=== PATIENT | male | born 1985 | race Caucasian/White ===

== ENCOUNTER 2021-05-15 11:24 | Emergency (ER) | payer OTHER ==
[2021-05-15] MEDS ORDERED: Sodium Chloride 0.9% 10 ML Syringe FLUSH PRN (12:46)
[2021-05-15] MEDS ORDERED: Famotidine 20 MG/2 ML SDV IVPUSH PRN (12:47)
[2021-05-15] MEDS ORDERED: methylPREDNISolone Sodium Succinate 125 MG/2 ML SDV IVPUSH PRN (12:47)
[2021-05-15] MEDS ORDERED: Codeine/Promethazine 10-6.25 MG/5 ML Syrup 5 ML UD Cup PO ONE (12:47)
[2021-05-15] MEDS ORDERED: EPINEPHrine 1 MG/ML SDV IM PRN (12:47)
[2021-05-15] MEDS ORDERED: diphenhydrAMINE 50 MG/ML SDV IVPUSH PRN (12:47)
[2021-05-15] MEDS ORDERED: Dexamethasone 10 MG/ML SDV IVPUSH ONE (12:48)
[2021-05-15] MEDS ORDERED: Sodium Chloride 0.9% 10 ML Syringe FLUSH SCH (13:00)
--- NOTE | 2021-05-15 13:01 | EDM.PDOC ---
ED HPI GENERAL MEDICAL PROBLEM - General Chief Complaint: Respiratory Problem Stated Complaint: COVID + Time Seen by Provider: 05/15/21 12:22 Source of Information: Reports: Patient, RN Notes Reviewed History Limitations: Reports: No Limitations - History of Present Illness INITIAL COMMENTS - FREE TEXT/NARRATIVE: Patient is a 35-year-old male who presents to the ER for evaluation of his COVID-19 symptoms. Patient notes he has been sick about a week now. He has had on and off chills and elevated temperatures. States he has no appetite, but has been trying to increase his oral fluid intake to include Gatorade and Powerade, states he had a couple chicken nuggets prior to coming to the ER, these have stayed down. He does note that his stomach has been generally upset, he does not feel like it is nausea, but he has had some episodes of looser stools or diarrhea as well. has been giving him Pepto-Bismol for this and he notes that his stool has turned black. He has been using Coricidin HBP medications, for ongoing symptoms. Along with cough medications [id number] to see if they can help the cough. His main concern is the dry intermittent cough, he has not been able to get much sleep due to the coughing. States his upper abdomen is somewhat tender or sore, due to all of the coughing. He is not having any active chest pain. Generalized Pain Score (Numeric/FACES): 5 - Related Data Allergies Allergy/AdvReac Type Severity Reaction Status Date / Time No Known Allergies Allergy Verified 05/15/21 12:49 Home Meds: Home Meds Promethazine HCl/Codeine [Prometh-Codein 6.25-10 mg/5 ml] 10 ml PO Q4H PRN #120 ml 05/15/21 [Rx] dexAMETHasone [Decadron] 6 mg PO DAILY 5 Days #5 tablet 05/15/21 [Rx] Past Medical History Cardiovascular History: Reports: High Cholesterol, Hypertension Psychiatric History: Reports: PTSD - Infectious Disease History Infectious Disease History: Reports: Novel Coronavirus Social & Family History - Caffeine Use Caffeine Use: Reports: Soda - Recreational Drug Use Recreational Drug Use: Yes Recreational Drug Type: Reports: Marijuana/Hashish Recreational Drug Use Frequency: Daily ED ROS GENERAL - Review of Systems Review Of Systems: Comprehensive ROS is negative, except as noted in HPI. ED EXAM, GENERAL - Physical Exam Exam: See Below Exam Limited By: No Limitations General Appearance: Alert, WD/WN, No Apparent Distress Respiratory/Chest: No Respiratory Distress, Lungs Clear, No Accessory Muscle Use, Chest Non-Tender, Decreased Breath Sounds (diminished bilaterally), Other (pt has dry intermittent cough) Cardiovascular: Normal Peripheral Pulses, Regular Rate, Rhythm, No Edema Peripheral Pulses: 2+: Radial (L), Radial (R) GI/Abdominal: Normal Bowel Sounds, Soft, No Distention, No Mass, Tender (slight tenderness to the upper abdomen/lower chest) Extremities: Normal Inspection, Normal Capillary Refill Neurological: Alert, Oriented, Normal Cognition, No Motor/Sensory Deficits Psychiatric: Normal Affect, Normal Mood Skin Exam: Warm, Dry, Intact, Normal Color, No Rash Course - Vital Signs Last Recorded V/S: Last Vital Signs Temp 98.1 F 05/15/21 12:45 Pulse 102 H 05/15/21 12:45 Resp 20 05/15/21 12:45 BP 160/99 H 05/15/21 12:45 Pulse Ox 92 L 05/15/21 12:45 - Orders/Labs/Meds Orders: Active Orders 24 hr Category Date Time Status Peripheral IV Care [RC] . DIRECTED Care 05/15/21 12:47 Active Vital Signs [RC] Q15M Care 05/15/21 12:47 Active Chest 1V Frontal [CR] Stat Exams 05/15/21 12:46 Taken EPINEPHrine [Adrenalin] Med 05/15/21 12:47 Active 0.3 mg IM ONETIME PRN Famotidine [Pepcid] Med 05/15/21 12:47 Active 20 mg IVPUSH ONETIME PRN Sodium Chloride 0.9% [Saline Flush] Med 05/15/21 12:46 Active 10 ml FLUSH ASDIRECTED PRN Sodium Chloride 0.9% [Saline Flush] Med 05/15/21 13:00 Active 30 ml FLUSH ASDIRECTED diphenhydrAMINE [Benadryl] Med 05/15/21 12:47 Active 50 mg IVPUSH ONETIME PRN methylPREDNISolone Sod Succ [Solu-MEDROL] Med 05/15/21 12:47 Active 125 mg IVPUSH ONETIME PRN Peripheral IV Insertion Adult [OM.PC] Routine Oth 05/15/21 12:46 Ordered Medication Orders Diphenhydramine HCl (Diphenhydramine 50 Mg/Ml Sdv) 50 mg IVPUSH ONETIME PRN PRN Reason: hypersensitivity reaction Epinephrine HCl (Epinephrine 1 Mg/Ml Sdv) 0.3 mg IM ONETIME PRN PRN Reason: hypersensitivity reaction Famotidine (Famotidine 20 Mg/2 Ml Sdv) 20 mg IVPUSH ONETIME PRN PRN Reason: hypersensitivity reaction Methylprednisolone Sodium Succinate (Methylprednisolone Sodium Succinate 125 Mg/2 Ml Sdv) 125 mg IVPUSH ONETIME PRN PRN Reason: hypersensitivity reaction Sodium Chloride (Sodium Chloride 0.9% 10 Ml Syringe) 10 ml FLUSH ASDIRECTED PRN PRN Reason: Keep Vein Open Sodium Chloride (Sodium Chloride 0.9% 10 Ml Syringe) 30 ml FLUSH ASDIRECTED CARMEN Labs: Laboratory Tests 05/15/21 05/15/21 05/15/21 Range/Units 13:15 13:15 13:15 WBC 7.07 (4.23-9.07) K/mm3 RBC 4.50 L (4.63-6.08) M/mm3 Hgb 13.1 L (13.7-17.5) gm/dl Hct 38.9 L (40.1-51.0) % MCV 86.4 (79.0-92.2) fl MCH 29.1 (25.7-32.2) pg MCHC 33.7 (32.2-35.5) g/dl RDW Std Deviation 42.6 (35.1-43.9) fL Plt Count 223 (163-337) K/mm3 MPV 10.6 (9.4-12.3) fl Neut % (Auto) 79.6 H (34.0-67.9) % Lymph % (Auto) 16.3 L (21.8-53.1) % Barton % (Auto) 3.7 L (5.3-12.2) % Eos % (Auto) 0 L (0.8-7.0) Baso % (Auto) 0.1 (0.1-1.2) % Neut # (Auto) 5.63 H (1.78-5.38) K/mm3 Lymph # (Auto) 1.15 L (1.32-3.57) K/mm3 Barton # (Auto) 0.26 L (0.30-0.82) K/mm3 Eos # (Auto) 0.00 L (0.04-0.54) K/mm3 Baso # (Auto) 0.01 (0.01-0.08) K/mm3 Manual Slide Review Normal smear PT 10.2 (9.7-12.0) SECONDS INR < 0.93 APTT 33.7 H (21.7-31.4) SECONDS D-Dimer, Quantitative 0.70 H (0.19-0.50) mg/L Sodium (136-145) mEq/L Potassium (3.5-5.1) mEq/L Chloride (98-107) mEq/L Carbon Dioxide (21-32) mEq/L Anion Gap (5-15) BUN (7-18) mg/dL Creatinine (0.7-1.3) mg/dL Est Cr Clr Drug Dosing mL/min Estimated GFR (MDRD) (>60) mL/min BUN/Creatinine Ratio (14-18) Glucose (70-99) mg/dL Calcium (8.5-10.1) mg/dL Magnesium (1.8-2.4) mg/dL Total Bilirubin (0.2-1.0) mg/dL AST (15-37) U/L ALT (16-63) U/L Alkaline Phosphatase (46-116) U/L C-Reactive Protein 13.5 H* (<1.0) mg/dL NT-Pro-B Natriuret Pep (0-125) pg/mL Total Protein (6.4-8.2) g/dl Albumin (3.4-5.0) g/dl Globulin gm/dL Albumin/Globulin Ratio (1-2) 05/15/21 05/15/21 Range/Units 13:15 13:15 WBC (4.23-9.07) K/mm3 RBC (4.63-6.08) M/mm3 Hgb (13.7-17.5) gm/dl Hct (40.1-51.0) % MCV (79.0-92.2) fl MCH (25.7-32.2) pg MCHC (32.2-35.5) g/dl RDW Std Deviation (35.1-43.9) fL Plt Count (163-337) K/mm3 MPV (9.4-12.3) fl Neut % (Auto) (34.0-67.9) % Lymph % (Auto) (21.8-53.1) % Barton % (Auto) (5.3-12.2) % Eos % (Auto) (0.8-7.0) Baso % (Auto) (0.1-1.2) % Neut # (Auto) (1.78-5.38) K/mm3 Lymph # (Auto) (1.32-3.57) K/mm3 Barton # (Auto) (0.30-0.82) K/mm3 Eos # (Auto) (0.04-0.54) K/mm3 Baso # (Auto) (0.01-0.08) K/mm3 Manual Slide Review PT (9.7-12.0) SECONDS INR APTT (21.7-31.4) SECONDS D-Dimer, Quantitative (0.19-0.50) mg/L Sodium 138 (136-145) mEq/L Potassium 3.7 (3.5-5.1) mEq/L Chloride 100 (98-107) mEq/L Carbon Dioxide 28 (21-32) mEq/L Anion Gap 13.7 (5-15) BUN 16 (7-18) mg/dL Creatinine 1.2 (0.7-1.3) mg/dL Est Cr Clr Drug Dosing 84.71 mL/min Estimated GFR (MDRD) > 60 (>60) mL/min BUN/Creatinine Ratio 13.3 L (14-18) Glucose 105 H (70-99) mg/dL Calcium 8.9 (8.5-10.1) mg/dL Magnesium 2.3 (1.8-2.4) mg/dL Total Bilirubin 0.5 (0.2-1.0) mg/dL AST 196 H (15-37) U/L ALT 133 H (16-63) U/L Alkaline Phosphatase 49 (46-116) U/L C-Reactive Protein (<1.0) mg/dL NT-Pro-B Natriuret Pep 70 (0-125) pg/mL Total Protein 8.2 (6.4-8.2) g/dl Albumin 3.5 (3.4-5.0) g/dl Globulin 4.7 gm/dL Albumin/Globulin Ratio 0.7 L (1-2) Meds: Medications Generic Name Dose Route Start Last Admin Trade Name Freq PRN Reason Stop Dose Admin Diphenhydramine HCl 50 mg 05/15/21 12:47 Diphenhydramine 50 Mg/Ml Sdv IVPUSH ONETIME PRN hypersensitivity reaction Epinephrine HCl 0.3 mg 05/15/21 12:47 Epinephrine 1 Mg/Ml Sdv IM ONETIME PRN hypersensitivity reaction Famotidine 20 mg 05/15/21 12:47 Famotidine 20 Mg/2 Ml Sdv IVPUSH ONETIME PRN hypersensitivity reaction Methylprednisolone Sodium Succinate 125 mg 05/15/21 12:47 Methylprednisolone Sodium Succinate 125 Mg/2 Ml Sdv IVPUSH ONETIME PRN hypersensitivity reaction Sodium Chloride 10 ml 05/15/21 12:46 Sodium Chloride 0.9% 10 Ml Syringe FLUSH ASDIRECTED PRN Keep Vein Open Sodium Chloride 30 ml 05/15/21 13:00 Sodium Chloride 0.9% 10 Ml Syringe FLUSH ASDIRECTED CARMEN Discontinued Medications Generic Name Dose Route Start Last Admin Trade Name Freq PRN Reason Stop Dose Admin Dexamethasone 6 mg 05/15/21 12:48 05/15/21 13:05 Dexamethasone 10 Mg/Ml Sdv IVPUSH 05/15/21 12:49 6 mg ONETIME ONE Administration CASIRIVIMAB/IMDEVIMAB 10 ml/ 110 mls @ 220 mls/hr 05/15/21 12:47 05/15/21 13:06 Sodium Chloride IV 05/15/21 13:16 220 mls/hr ONETIME ONE Administration Promethazine HCl/Codeine 10 ml 05/15/21 12:47 05/15/21 13:08 Codeine/Promethazine 10-6.25 Mg/5 Ml Syrup 5 Ml Ud Cup PO 05/15/21 12:48 10 ml ONETIME ONE Administration - Re-Assessments/Exams Free Text/Narrative Re-Assessment/Exam: 05/15/21 13:00 Patient presents to the ER for his COVID-19 symptoms, O2 sats have been 90-92 on room air for the most part, due to body habitus and hypertension diagnosis, he would qualify for Regeneron therapy. We will also give him some cough medication to see if this helps relax him a little bit, as he did have an intense dry intermittent cough. Basic labs to be obtained along with a chest x- ray for ongoing management. I spoke with patient to provide information about Regeneron treatment. I offered them the "Patient and caregiver [facility] Regeneron fact sheet" to read and review. I stated that the drug has been approved by an emergency use authorization (EUA) process and has not been fully FDA reviewed or approved. The patient meets the EUA requirements. I discussed there are other potential treatment options that are currently not FDA approved to treat COVID-19. I did offer an opportunity to ask questions and all questions were answered. Patient voiced understanding and agreed to proceed with the treatment. 05/15/21 14:02 Labs have resulted, CBC is unremarkable, CMP is essentially unremarkable but the patient's AST/ALT were both slightly elevated. CRP was elevated at 13.5, the D-dimer is elevated at 0.70. 05/15/21 14:37 Patient is observation. Is done, O2 sats have still stayed above 90, the patient is doing well and we will discharge him home with a prescription for cough medication. Departure - Departure Time of Disposition: 14:38 Disposition: Home, Self-Care 01 Condition: Fair Clinical Impression: COVID-19 - Discharge Information *PRESCRIPTION DRUG MONITORING PROGRAM REVIEWED*: Yes *COPY OF PRESCRIPTION DRUG MONITORING REPORT IN PATIENT LORRI: No Prescriptions: dexAMETHasone [Decadron] 6 mg PO DAILY 5 Days #5 tablet Promethazine HCl/Codeine [Prometh-Codein 6.25-10 mg/5 ml] 10 ml PO Q4H PRN #120 ml PRN Reason: Cough Instructions: COVID-19 Frequently Asked Questions, 10 Things You Can Do to Manage Your COVID-19 Symptoms at Home - [facility] (03/03/2020) Forms: ED Department Discharge Additional Instructions: You were seen in the ER today for ongoing and/or worsening respiratory symptoms. Your chest x-ray showed minimal signs of a viral pneumonia at this time; this is typical for COVID-19 infection. Your oxygen levels were acceptable at 92-93% on room air. You were given IV Regeneron therapy at today's visit, this medication is thought to work by making you a little less sick, and helps to decrease the length of time that you are sick. Please try to increase your oral fluid intake, and eat multiple small meals throughout the day, to keep yourself healthy. You need to keep yourself nourished in order to fight off this disease. You can try a liquid diet like gatorade/powerade as well to get your electrolytes. You may take 500 mg Tylenol every hours 6 hours for pain/fever relief. Do not exceed 4000 mg Tylenol in a 24-hour time span. However, running a fever is your body's natural response to illness, and it allows the body to develop antibodies to disease, we are recommending trying to limit the use of Tylenol as much as possible to allow your body's natural immune response. Recommend you obtain a pulse oximeter and monitor your oxygen levels at home, you should place the monitor on your finger, and sit in a calm, quiet position for a few minutes and then record the number that is on the screen. If this consistently below 90% on room air without movement, this would be cause for concern to come back to the hospital for further management of your COVID-19 disease. Please follow all guidance set forth from [facility], regarding isolation purposes for your disease process. General isolation times are 10 days from when you started being symptomatic. You were given a prescription for cough medication, please take at least 10 mL every 4-6 hours as needed for cough. You were also given a prescription for dexamethasone, and oral steroid to take 1 tablet daily until gone. Your prescription was electronically sent to [facility] pharmacy located near [facility], this pharmacy is only open from 12 to 4 PM on Sundays, you will need to go there during this timeframe to obtain this medication and take as prescribed. Sepsis Event Note (ED) - Focused Exam Vital Signs: Vital Signs Temp Pulse Resp BP Pulse Ox 05/15/21 12:45 98.1 F 102 H 20 160/99 H 92 L - My Orders Last 24 Hours: My Active Orders 05/15/21 12:46 Chest 1V Frontal [CR] Stat Sodium Chloride 0.9% [Saline Flush] 10 ml FLUSH ASDIRECTED PRN Peripheral IV Insertion Adult [OM.PC] Routine 05/15/21 12:47 Peripheral IV Care [RC] . DIRECTED Vital Signs [RC] Q15M EPINEPHrine [Adrenalin] 0.3 mg IM ONETIME PRN Famotidine [Pepcid] 20 mg IVPUSH ONETIME PRN diphenhydrAMINE [Benadryl] 50 mg IVPUSH ONETIME PRN methylPREDNISolone Sod Succ [Solu-MEDROL] 125 mg IVPUSH ONETIME PRN 05/15/21 13:00 Sodium Chloride 0.9% [Saline Flush] 30 ml FLUSH ASDIRECTED - Assessment/Plan Last 24 Hours: My Active Orders 05/15/21 12:46 Chest 1V Frontal [CR] Stat Sodium Chloride 0.9% [Saline Flush] 10 ml FLUSH ASDIRECTED PRN Peripheral IV Insertion Adult [OM.PC] Routine 05/15/21 12:47 Peripheral IV Care [RC] . DIRECTED Vital Signs [RC] Q15M EPINEPHrine [Adrenalin] 0.3 mg IM ONETIME PRN Famotidine [Pepcid] 20 mg IVPUSH ONETIME PRN diphenhydrAMINE [Benadryl] 50 mg IVPUSH ONETIME PRN methylPREDNISolone Sod Succ [Solu-MEDROL] 125 mg IVPUSH ONETIME PRN 05/15/21 13:00 Sodium Chloride 0.9% [Saline Flush] 30 ml FLUSH ASDIRECTED
--- NOTE | 2021-05-16 07:16 | CR ---
Chest: Frontal view of the chest was obtained. Comparison: No prior chest imaging is available. Slight patchy increased density is seen within the perihilar regions and within the left base. Lungs otherwise are clear. Heart size and mediastinum are normal. Bony structures show nothing acute. Impression: 1. Slight increased perihilar density as well as within the left lung base. Findings most likely represent mild change from COVID pneumonia. Diagnostic code #3
== END 2021-05-15 15:02 | disposition home or self-care (01) ==
LOC: JD.ED 11:24
DX: U07.1 COVID-19 (principal); I10 Essential (primary) hypertension; Z79.899 Other long term (current) drug therapy
CPT/HCPCS: 36415; 71045; 80053; 83735; 83880; 85025; 85379; 85610; 85730; 86140; 96374; 99284; A9270; J1100; M0243; Q0243

== ENCOUNTER 2021-05-21 13:56 | Emergency (ER) | payer OTHER ==
--- NOTE | 2021-05-21 14:34 | EDM.PDOC ---
ED HPI GENERAL MEDICAL PROBLEM - General Chief Complaint: Respiratory Problem Stated Complaint: LOW O2 AND HIGH RATE SENT BY [facility] Time Seen by Provider: 05/21/21 14:34 - History of Present Illness INITIAL COMMENTS - FREE TEXT/NARRATIVE: 35-year-old male presents the emergency room with significant worsening shortness of breath. Patient was diagnosed with Covid sometime back he was seen in the emergency room here a week ago and had thorough exam he started to get better however over the last several days he is getting much. He is having significant shortness of breath worse and he is just weak and tired. No fevers or chills no significant chest pains just kind of achy in one side is not more painful than the other. His heart rate is up and his respiratory rate is up. He favors laying down just does not want to get up and do anything. He is too tired. Deep breathing seems to aggravate this. - Related Data Allergies Allergy/AdvReac Type Severity Reaction Status Date / Time No Known Allergies Allergy Verified 05/21/21 14:12 Home Meds: Home Meds Cholecalciferol (Vitamin D3) [Vitamin D3] 1,000 unit PO DAILY 05/21/21 [History] Fish Oil/Cope-3 Fatty Acids [Fish Oil 1,000 MG] 3,000 mg PO DAILY 05/21/21 [History] Losartan [Cozaar] 25 mg PO DAILY 05/21/21 [History] Meloxicam [Mobic] 15 mg PO DAILY 05/21/21 [History] Metoprolol Succinate [Toprol XL] 25 mg PO DAILY 05/21/21 [History] atorvaSTATin [Lipitor] 10 mg PO BEDTIME 05/21/21 [History] Past Medical History Cardiovascular History: Reports: High Cholesterol, Hypertension Psychiatric History: Reports: PTSD Endocrine/Metabolic History: Reports: Vitamin D Deficiency - Infectious Disease History Infectious Disease History: Reports: Novel Coronavirus Social & Family History - Tobacco Use Tobacco Use Status *Q: Never Tobacco User - Caffeine Use Caffeine Use: Reports: Soda - Recreational Drug Use Recreational Drug Use: Yes Drug Use in Last 12 Months: Yes Recreational Drug Type: Reports: Marijuana/Hashish Recreational Drug Use Frequency: Daily ED ROS GENERAL - Review of Systems Review Of Systems: See Below Constitutional: Reports: No Symptoms HEENT: Reports: No Symptoms Respiratory: Reports: Shortness of Breath Cardiovascular: Reports: Chest Pain (A unusual sensation more of a discomfort it does not favor one side or the other) GI/Abdominal: Reports: No Symptoms : Reports: No Symptoms Musculoskeletal: Reports: Other (He describes lower extremity weakness but no discomfort) Skin: Reports: No Symptoms Neurological: Reports: No Symptoms Psychiatric: Reports: No Symptoms ED EXAM, GENERAL - Physical Exam Exam: See Below Exam Limited By: Other (He is hypoxic and tachycardia) General Appearance: Alert, No Apparent Distress Head: Atraumatic, Normocephalic Neck: Normal Inspection, Supple, Non-Tender, Full Range of Motion Respiratory/Chest: No Respiratory Distress, Lungs Clear, Normal Breath Sounds Cardiovascular: Regular Rate, Rhythm, No Edema, No Murmur GI/Abdominal: Normal Bowel Sounds, Soft, Non-Tender Back Exam: Normal Inspection. No: CVA Tenderness (L), CVA Tenderness (R) Extremities: Normal Inspection, Non-Tender, No Pedal Edema Neurological: Alert, Oriented, Normal Cognition #1 Interpretation EKG Date: 05/21/21 Rhythm: Other (Sinus tach) Rate (Beats/Min): 105 Gomer: Normal P-Wave: Present QRS: Other (Consider LVH) ST-T: Normal QT: Prolonged (Prolonged QTc) Comparison: NA - No Prior EKG EKG Interpretation Comments: Abnormal Course - Vital Signs Last Recorded V/S: Last Vital Signs Temp 35.9 C L 05/21/21 18:10 Pulse 112 H 05/21/21 18:10 Resp 24 H 05/21/21 18:10 BP 173/111 H 05/21/21 18:10 Pulse Ox 95 05/21/21 18:10 - Orders/Labs/Meds Orders: Active Orders 24 hr Category Date Time Status Ang Chest [CT] Stat Exams 05/21/21 14:46 Taken BLOOD CULTURE [MREF] Stat Lab 05/21/21 17:19 Received BLOOD CULTURE [MREF] Stat Lab 05/21/21 17:27 Received HEPATIC FUNCTION PANEL,HFP [CHEM] DAILY Lab 05/22/21 17:30 Ordered HEPATIC FUNCTION PANEL,HFP [CHEM] DAILY Lab 05/23/21 17:30 Ordered HEPATIC FUNCTION PANEL,HFP [CHEM] DAILY Lab 05/24/21 17:30 Ordered HEPATIC FUNCTION PANEL,HFP [CHEM] DAILY Lab 05/25/21 17:30 Ordered HEPATIC FUNCTION PANEL,HFP [CHEM] Stat Lab 05/21/21 17:19 Ordered Sodium Chloride 0.9% [Normal Saline] 45 ml Med 05/21/21 15:00 Active IV ASDIRECTED Sodium Chloride 0.9% [Saline Flush] Med 05/21/21 14:55 Active 10 ml FLUSH ONETIME PRN Blood Culture x2 Reflex Set [OM.PC] Stat Oth 05/21/21 17:01 Ordered Medication Orders Sodium Chloride (Normal Saline) 45 mls @ 40 mls/hr IV ASDIRECTED CARMEN Last Admin: 05/21/21 15:45 Dose: 40 mls/hr Documented by: SUZAN Sodium Chloride (Sodium Chloride 0.9% 10 Ml Syringe) 10 ml FLUSH ONETIME PRN PRN Reason: Keep Vein Open Last Admin: 05/21/21 15:45 Dose: 10 ml Documented by: SUZAN Labs: Laboratory Tests 05/21/21 05/21/21 05/21/21 Range/Units 14:55 14:55 14:55 WBC 10.39 H (4.23-9.07) K/mm3 RBC 4.54 L (4.63-6.08) M/mm3 Hgb 13.4 L (13.7-17.5) gm/dl Hct 39.3 L (40.1-51.0) % MCV 86.6 (79.0-92.2) fl MCH 29.5 (25.7-32.2) pg MCHC 34.1 (32.2-35.5) g/dl RDW Std Deviation 41.6 (35.1-43.9) fL Plt Count 489 H D (163-337) K/mm3 MPV 9.6 (9.4-12.3) fl Neut % (Auto) 73.8 H (34.0-67.9) % Lymph % (Auto) 11.5 L (21.8-53.1) % [place] % (Auto) 5.3 (5.3-12.2) % Eos % (Auto) 2.2 (0.8-7.0) Baso % (Auto) 0.5 (0.1-1.2) % Neut # (Auto) 7.67 H (1.78-5.38) K/mm3 Lymph # (Auto) 1.19 L (1.32-3.57) K/mm3 [place] # (Auto) 0.55 (0.30-0.82) K/mm3 Eos # (Auto) 0.23 (0.04-0.54) K/mm3 Baso # (Auto) 0.05 (0.01-0.08) K/mm3 Manual Slide Review Abnormal smear PT 10.5 (9.7-12.0) SECONDS INR 0.94 APTT 25.9 (21.7-31.4) SECONDS Sodium 137 (136-145) mEq/L Potassium 4.0 (3.5-5.1) mEq/L Chloride 102 (98-107) mEq/L Carbon Dioxide 28 (21-32) mEq/L Anion Gap 11.0 (5-15) BUN 17 (7-18) mg/dL Creatinine 1.1 (0.7-1.3) mg/dL Est Cr Clr Drug Dosing 92.41 mL/min Estimated GFR (MDRD) > 60 (>60) mL/min BUN/Creatinine Ratio 15.5 (14-18) Glucose 103 H (70-99) mg/dL Lactic Acid (0.4-2.0) mmol/L Calcium 8.9 (8.5-10.1) mg/dL Total Bilirubin 0.9 (0.2-1.0) mg/dL AST 80 H (15-37) U/L ALT 190 H (16-63) U/L Alkaline Phosphatase 59 (46-116) U/L Troponin I < 0.017 (0.00-0.056) ng/mL Total Protein 7.7 (6.4-8.2) g/dl Albumin 2.9 L (3.4-5.0) g/dl Globulin 4.8 gm/dL Albumin/Globulin Ratio 0.6 L (1-2) 05/21/21 Range/Units 17:19 WBC (4.23-9.07) K/mm3 RBC (4.63-6.08) M/mm3 Hgb (13.7-17.5) gm/dl Hct (40.1-51.0) % MCV (79.0-92.2) fl MCH (25.7-32.2) pg MCHC (32.2-35.5) g/dl RDW Std Deviation (35.1-43.9) fL Plt Count (163-337) K/mm3 MPV (9.4-12.3) fl Neut % (Auto) (34.0-67.9) % Lymph % (Auto) (21.8-53.1) % [place] % (Auto) (5.3-12.2) % Eos % (Auto) (0.8-7.0) Baso % (Auto) (0.1-1.2) % Neut # (Auto) (1.78-5.38) K/mm3 Lymph # (Auto) (1.32-3.57) K/mm3 [place] # (Auto) (0.30-0.82) K/mm3 Eos # (Auto) (0.04-0.54) K/mm3 Baso # (Auto) (0.01-0.08) K/mm3 Manual Slide Review PT (9.7-12.0) SECONDS INR APTT (21.7-31.4) SECONDS Sodium (136-145) mEq/L Potassium (3.5-5.1) mEq/L Chloride (98-107) mEq/L Carbon Dioxide (21-32) mEq/L Anion Gap (5-15) BUN (7-18) mg/dL Creatinine (0.7-1.3) mg/dL Est Cr Clr Drug Dosing mL/min Estimated GFR (MDRD) (>60) mL/min BUN/Creatinine Ratio (14-18) Glucose (70-99) mg/dL Lactic Acid 1.4 (0.4-2.0) mmol/L Calcium (8.5-10.1) mg/dL Total Bilirubin (0.2-1.0) mg/dL AST (15-37) U/L ALT (16-63) U/L Alkaline Phosphatase (46-116) U/L Troponin I (0.00-0.056) ng/mL Total Protein (6.4-8.2) g/dl Albumin (3.4-5.0) g/dl Globulin gm/dL Albumin/Globulin Ratio (1-2) Meds: Medications Generic Name Dose Route Start Last Admin Trade Name Freq PRN Reason Stop Dose Admin Sodium Chloride 45 mls @ 40 mls/hr 05/21/21 15:00 05/21/21 15:45 Normal Saline IV 40 mls/hr ASDIRECTED CARMEN Administration Sodium Chloride 10 ml 05/21/21 14:55 05/21/21 15:45 Sodium Chloride 0.9% 10 Ml Syringe FLUSH 10 ml ONETIME PRN Administration Keep Vein Open Discontinued Medications Generic Name Dose Route Start Last Admin Trade Name Davidq PRN Reason Stop Dose Admin Acetaminophen 975 mg 05/21/21 17:00 05/21/21 17:53 Acetaminophen 325 Mg Tab PO 05/21/21 17:01 975 mg NOW ONE Administration Dexamethasone 6 mg 05/21/21 17:19 05/21/21 18:01 Dexamethasone 4 Mg/Ml 5 Ml Mdv IV 05/21/21 17:20 6 mg ONETIME ONE Administration Ceftriaxone Sodium 2 gm/ 100 mls @ 200 mls/hr 05/21/21 17:00 Sodium Chloride IV Q24H CARMEN Remdesivir 200 mg/ Sodium 250 mls @ 250 mls/hr 05/21/21 17:19 05/21/21 18:03 Chloride IV 05/21/21 17:20 250 mls/hr ONETIME ONE Administration Iopamidol 100 ml 05/21/21 14:55 05/21/21 15:45 Iopamidol 755 Mg/Ml 100 Ml Bottle IVPUSH 05/21/21 14:56 100 ml ONETIME ONE Administration Lorazepam 1 mg 05/21/21 17:43 05/21/21 17:54 Lorazepam 2 Mg/Ml Sdv IVPUSH 05/21/21 17:44 1 mg ONETIME ONE Administration - Re-Assessments/Exams Free Text/Narrative Re-Assessment/Exam: 05/21/21 17:02 Patient CTA came back no evidence of PE looks like he has a viral pneumonia present however given his clinical scenario I am concerned possibly a secondary bacterial infection. He was improving Sunday was his best day now it is Sunday and is progressively getting worse. He is getting more weak and tired. We will go ahead and obtain blood cultures and start 2 g of IV Rocephin and check a lactic acid. I will not institute aggressive rehydration at this time because of his Covid status, and he has ample blood pressure. 05/21/21 17:44 I was able to locate a hospital bed at [facility] in [place]. Case discussed with Dr. Amaya, hospitalist at [facility], who is kind enough to accept the patient in transfer. He is recommendations hold off on antibiotics at this point give remdesivir and dexamethasone these orders have been changed and adjusted per his recommendation. Situation discussed in detail with the patient and significant other. Patient needs hospitalization because of his hypoxia and further evaluation. We do not have any available hospital beds here at this time. Departure - Departure Time of Disposition: 17:47 Disposition: DC/Tfer to [facility] 02 Clinical Impression: COVID-19, Hypoxia - Discharge Information Referrals: Amna Silveira MD [Primary Care Provider] - Forms: ED Department Discharge Sepsis Event Note (ED) - Evaluation Sepsis Screening Result: No Definite Risk - Focused Exam Vital Signs: Vital Signs Temp Pulse Resp BP Pulse Ox 05/21/21 18:10 35.9 C L 112 H 24 H 173/111 H 95 05/21/21 14:08 36.1 C 123 H 32 H 184/118 H 84 L - My Orders Last 24 Hours: My Active Orders 05/21/21 14:46 Ang Chest [CT] Stat 05/21/21 14:55 Sodium Chloride 0.9% [Saline Flush] 10 ml FLUSH ONETIME PRN 05/21/21 15:00 Sodium Chloride 0.9% [Normal Saline] 45 ml IV ASDIRECTED 05/21/21 17:01 Blood Culture x2 Reflex Set [OM.PC] Stat 05/21/21 17:19 BLOOD CULTURE [MREF] Stat HEPATIC FUNCTION PANEL,HFP [CHEM] Stat 05/21/21 17:27 BLOOD CULTURE [MREF] Stat 05/22/21 17:30 HEPATIC FUNCTION PANEL,HFP [CHEM] DAILY 05/23/21 17:30 HEPATIC FUNCTION PANEL,HFP [CHEM] DAILY 05/24/21 17:30 HEPATIC FUNCTION PANEL,HFP [CHEM] DAILY 05/25/21 17:30 HEPATIC FUNCTION PANEL,HFP [CHEM] DAILY - Assessment/Plan Last 24 Hours: My Active Orders 05/21/21 14:46 Ang Chest [CT] Stat 05/21/21 14:55 Sodium Chloride 0.9% [Saline Flush] 10 ml FLUSH ONETIME PRN 05/21/21 15:00 Sodium Chloride 0.9% [Normal Saline] 45 ml IV ASDIRECTED 05/21/21 17:01 Blood Culture x2 Reflex Set [OM.PC] Stat 05/21/21 17:19 BLOOD CULTURE [MREF] Stat HEPATIC FUNCTION PANEL,HFP [CHEM] Stat 05/21/21 17:27 BLOOD CULTURE [MREF] Stat 05/22/21 17:30 HEPATIC FUNCTION PANEL,HFP [CHEM] DAILY 05/23/21 17:30 HEPATIC FUNCTION PANEL,HFP [CHEM] DAILY 05/24/21 17:30 HEPATIC FUNCTION PANEL,HFP [CHEM] DAILY 05/25/21 17:30 HEPATIC FUNCTION PANEL,HFP [CHEM] DAILY
[2021-05-21] MEDS ORDERED: Sodium Chloride 0.9% 10 ML Syringe FLUSH PRN (14:55)
[2021-05-21] MEDS ORDERED: Iopamidol 755 Mg/ML 100 ML Bottle IVPUSH ONE (14:55)
[2021-05-21] MEDS ORDERED: Sodium Chloride 0.9% 45 ML IV SCH (15:00)
[2021-05-21] MEDS ORDERED: cefTRIAXone 2 GM in Sodium Chloride 0.9% 100 ML IV SCH (17:00)
[2021-05-21] MEDS ORDERED: Acetaminophen 325 MG Tab PO ONE (17:00)
[2021-05-21] MEDS ORDERED: REMDESIVIR 200 MG in Sodium Chloride 0.9% 250 ML IV ONE (17:19)
[2021-05-21] MEDS ORDERED: Dexamethasone 4 MG/ML 5 ML MDV IV ONE (17:19)
[2021-05-21] MEDS ORDERED: LORazepam 2 MG/ML SDV IVPUSH ONE (17:43)
[2021-05-21] MEDS ORDERED: Sodium Chloride 0.9% 1,000 ML ONE (19:23)
[2021-05-21] MEDS ORDERED: Sodium Chloride 0.9% 1,000 ML IV SCH (19:45)
--- NOTE | 2021-05-22 16:40 | CT ---
CT chest Technique: Multiple axial sections through the chest were obtained. Intravenous contrast was utilized. Study has been performed as a pulmonary angiogram protocol. Comparison: Prior chest x-ray of 05/15/21 (12:39 PM). Findings: Pulmonary arteries are well opacified. No filling defects are seen to indicate pulmonary embolism. Thoracic aorta shows no aneurysm. Ascending aorta measures 3.7 cm which is ectatic. Small scattered lymph nodes are seen within the hilar regions and within the mediastinum which are felt to be within normal limits. No pericardial thickening is seen. Fatty infiltration is noted within the liver. Small cyst is partially visualized within the left kidney measuring 1.2 cm. Scattered areas of increased density are noted throughout both sides of the chest. Findings are compatible with fairly severe COVID pneumonia. Bone window settings were reviewed which show no acute osseous abnormality. Impression: 1. No findings of pulmonary embolism. 2. Fairly severe bilateral COVID pneumonia. 3. Fatty infiltration within the liver and other incidental findings. 4. Slightly ectatic ascending aorta with AP dimension of 3.7 cm. Diagnostic code #3 I agree with preliminary report from [facility], finalized on 05/21/21, 5:21 PM CDT, code 1
== END 2021-05-21 19:50 ==
LOC: JD.ED 13:56
DX: U07.1 COVID-19 (principal); E78.00 Pure hypercholesterolemia, unspecified; I10 Essential (primary) hypertension; Z79.899 Other long term (current) drug therapy
CPT/HCPCS: 36415; 71275; 80053; 83605; 84484; 85025; 85610; 85730; 87040; 93005; 96374; 96375; 99285; A9270; J1100; J2060; J7030; J7050; Q9967; 93010